=== PATIENT | female | born 2000 | race Caucasian/White ===

== ENCOUNTER → 2019-04-06 | Outpatient (CLI) | payer OTHER ==
[~2019-04-06] MED LIST: CHOL20002 PO; DULO60CA6 PO
--- NOTE | 2019-04-06 18:11 | PAIN ---
DATE OF SERVICE: 04/06/2019 INITIAL CONSULTATION FOR PAIN CLINIC CHIEF COMPLAINT: Overall whole body pain, more specifically low back pain. HISTORY OF PRESENT ILLNESS: The patient is a 18-year-old female who presents with history of pain. She reports for about 8 years when she was 10 began overall body pain from head to toe without any specific injury or action that she is aware of, came up gradually beginning in 2011. The patient reports the pain from head to toe, most significantly across the low back. The patient reports the pain is constant, sharp, stabbing, changes during the day, worse with activity, tingling and numbness in the back itself and in the legs, also pain in the shoulders, upper extremities, elbows, wrists and hands equally right and left as well as the right hip which is more tender than the left, worse with sitting or changing positions, better with walking. The patient has had multiple workups. She reports she is seeing approximately 22 physicians for this problem, has had multiple interventional techniques done as far as lumbar epidural injections, lumbar medial branch blocks, facet joint injections as well as sacroiliac joint injections, all with no significant decrease in pain. The patient is currently taking [id number] naproxen and Tylenol, also has tried nabumetone, Mobic and Tylenol No. 3 is the only thing that has helped the pain. She tried Medrol packs, sulfasalazine, methotrexate and Voltaren gel, all with no decrease in pain. The patient reports the only thing that has helped her pain at all has been Tylenol with Codeine. She gets this for a dog bite that she sustained on her right arm. When she took the Tylenol with Codeine, her other pain throughout the body and the low back were gone. The patient reports she wakes up from sleep at least once or twice a night, does not affect her bowel or bladder control, but does affect her ability to walk, change in positions, etc. The patient reports a disability rating from 0-10, 10 being the worst, is a 3 with family home responsibilities, occupation and self-care, 8 with recreation, 5 with social activity and life support activities. The patient has had an MRI scan report, which is unavailable at time of this dictation, although narrative from previous physician's office says MRI of lumbar spine normal. PAST MEDICAL HISTORY: Significant for enlarged thyroid, although the patient has been in good health thus far she is aware. PAST SURGICAL HISTORY: No previous surgeries. CURRENT MEDICATIONS: Include Cymbalta and vitamin D. ALLERGIES: No known drug allergies. SOCIAL HISTORY: The patient does not drink alcohol, does not smoke, does not use any illegal, illicit or recreational drugs. 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 FAMILY HISTORY: Significant for heart disease, hypercholesterolemia, arthritis and diabetes. REVIEW OF SYSTEMS: The patient's review of systems is positive for those items mentioned in history of present illness. All systems reviewed and otherwise negative. It is complete, full and well documented on the patient's chart. PHYSICAL EXAMINATION: VITAL SIGNS: The patient's blood pressure is 113/75, pulse 85, respirations 18, temperature 98.0 degrees Fahrenheit, height is 5 feet 4 inches, weight is 128 pounds. GENERAL: The patient is awake, alert, oriented, appropriate, very pleasant demeanor. The patient is accompanied by her mother. HEENT: Shows normocephalic, atraumatic. Extraocular movements are intact and symmetrical. The patient has a piercing on the left naris. Oral cavity shows mucous membranes moist and pink. Dentition is intact. NECK: Shows anterior throat supple without palpable lymphadenopathy noted. Swallow reflex symmetrical. CHEST: Shows normal on inspection. Breath sounds are clear to auscultation bilaterally. HEART: Shows S1, S2 clear. No murmurs auscultated. ABDOMEN: Soft, nontender, nondistended. No palpable organomegaly is noted. No rebound or guarding demonstrated. BACK: Shows spine grossly in the midline, normal-appearing cervical lordotic curvature, thoracic kyphotic curvature and slight rightward scoliosis deviation in the lumbar spine, but only very minimal. With palpation, diffuse tenderness throughout the upper, middle and lower distribution of the paraspinous musculature in the cervical distribution. Superior medial and lateral trapezius musculature mildly to moderately tender diffusely as well without specific trigger points or asymmetry. No radiation of pain. This is true into the rhomboid distribution as well as the thoracic paraspinous muscles. Lumbar paraspinous muscles are symmetrical with moderate tenderness in the middle distribution and significant tenderness in the low lumbar distribution, right greater than left. Tenderness over the posterior superior iliac spine as well as over the sacroiliac regions bilaterally with direct palpation, right greater than left as well. The patient has good rotational motion of the cervical spine. Full past 45 degrees closer to 90 degrees, right and left lateral rotation as well as full extension, full forward flexion without difficulty or pain reported. Lumbar spine shows good rotation as well, right and left without significant increase in pain as well as extension and forward flexion without increase in pain as well. EXTREMITIES: The patient's extremities show upper extremity deep tendon reflexes 2+ in the biceps, triceps tendons. Motor exam is strong with body man strength rated at 5/5 as is bicep and tricep flexion. No loss of strength on resistance with shoulder shrug or abduction of shoulder to 90 degrees. Peripheral pulses are 2+ in radial distribution. No peripheral edema is noted bilaterally. Upper extremities are warm and dry to touch, equal in color and appearance. No discoloration, no mottling, no edema. Lower extremities show deep tendon reflexes 2+ in the patellar, 1+ tendo-calcaneus tendons. Motor exam is strong with 5/5 dorsiflexion, extension, quadriceps, hamstring flexion and symmetrical. Peripheral pulses are 1+ posterior tibial. No peripheral edema is noted. No mottling, discoloration. Lower extremities are warm and dry to touch, equal in color and appearance. The patient is able to stand on her toes without significant difficulty or loss of balance, walks with a normal-appearing gait. SKIN: Shows warm and dry, good turgor. No edema. No sores, rashes or bruising throughout. IMPRESSION: 1. This is a 18-year-old female with an 8-year history of generalized body pain as well as low back pain via her chief complaint and right hip pain. 2. Multiple workups without significant diagnostic findings with multiple interventional techniques performed for low back pain and no significant improvements in the past. RECOMMENDATIONS: 1. Neurology recommendation for evaluation with Dr. Nikita Herron office at [facility]. 2. Discussed options with medications. We will try a titration pack of Savella. The patient was given instruction as well as side effects to be aware of as well as her mother who accompanied her to visit today. The patient will follow up after Neurology evaluation and after trial of Savella, which could be started on a regular basis if significantly effective for decreasing pain. CYRUS CASLTE MD DR: ORLANDO/pina JOB#: [id number] / [id number] EDIN Tam DO
== END | disposition home or self-care (01) ==
LOC: PNCL 14:08
PROVIDERS: ATTEND Anesthesiology
DX: M54.5 Low back pain (principal); M25.552 Pain in left hip; E78.00 Pure hypercholesterolemia, unspecified; M19.90 Unspecified osteoarthritis, unspecified site; E11.9 Type 2 diabetes mellitus without complications; E04.9 Nontoxic goiter, unspecified; Z79.899 Other long term (current) drug therapy
CPT/HCPCS: G0463

== ENCOUNTER → 2019-07-13 | Outpatient (CLI) | payer OTHER ==
--- NOTE | 2019-07-13 13:03 | PAIN ---
DATE OF SERVICE: 07/13/2019 PROGRESS NOTE FOR PAIN CLINIC DIAGNOSES: Lumbar radiculopathy with lumbar low back pain and chronic pain syndrome, also myofascial pain. HISTORY OF PRESENT ILLNESS: The patient is a 18-year-old female, who returns for followup, status post initial evaluation, last seen 04/06/2019. The patient with multiple complaints at the time at base of the neck, shoulder, upper extremity, low back, mid back and bilateral lower extremity pain with chronic pain syndrome, status post multiple interventional techniques. Prior to that evaluation, we had recommended Savella titration pack at that time, which she reports did not do much decrease the pain. She is now taking Klonopin, which seems to help the pain moderately. The patient's chief complaint today is low back and bilateral lower extremity pain. The patient reports her "sciatic pain" is increasing, especially with riding in her car on her way to and from work and some at work as well. 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 The patient reports the pain in the low back where it is radiating to the posterior gluteus, posterior thighs, posterior calves, slightly worse on the right than the left, but present bilaterally. The patient reports it is an 8 on a scale of 10 at its worst over the past week, 6 on average, 3 at its least and is a 6 today. The patient reports it is stabbing, radiating, becoming more constant, shooting and burning without significant weakness or fatigability in the lower extremities. The patient has not been stumbling or falling. The patient reports it does not awaken her from sleep at night, much better with lying down or sitting in a more comfortable chair, but again riding the car on her way to work is exacerbating the pain significantly as well as riding home. We talked about possibly finding a lumbar support for the car seat or changing the configuration of the car seat as she drives and she has tried most of these already. PHYSICAL EXAMINATION: VITAL SIGNS: The patient's blood pressure is 108/74, pulse 83, respirations 18, temperature 98.1 degrees Fahrenheit, height is 5 feet 4 inches, weight is 134 pounds. GENERAL: The patient is awake, alert, oriented, appropriate. She has very pleasant demeanor. HEENT: Head shows normocephalic, atraumatic. Extraocular movements are intact and symmetrical. Oral cavity: Mucous membranes moist and pink. NECK: Shows anterior throat supple. CHEST: Shows normal on inspection. Breath sounds are clear bilaterally. HEART: Shows S1, S2 clear. No murmurs auscultated. ABDOMEN: Soft, nontender, nondistended. BACK: Shows spine grossly in the midline. Normal-appearing thoracic kyphosis and lumbar lordotic curvature. Lumbar paraspinous muscle shows symmetrical on inspection. On palpation, she has some moderate tenderness diffusely bilaterally going diffusely throughout the upper, middle and lower distribution of the paraspinous muscles, but without radiation. The patient's spine shows good rotational motion with some moderate tenderness with right and left lateral rotation past 10 degrees, but no significant tenderness with extension and no significant tenderness with forward flexion at 10 degrees and 45 degrees respectively. EXTREMITIES: The patient's lower extremities show deep tendon reflexes 2+ in the patellar and 1+ tendo-calcaneus tendons. Motor exam is strong with 5/5 dorsiflexion, extension, quadriceps and hamstring flexion symmetrical. Peripheral pulses are 1+ posterior tibia. No peripheral edema is noted bilaterally. Lower extremities are warm and dry to touch, equal in color and appearance. The patient is able to stand, stand on her toes, walks with a normal-appearing gait. She does not appear to favor the right or left lower extremity. She is not using any assistive devices to ambulate. PLAN: Options were discussed with the patient. The patient's old chart was reviewed as her current medication regimen updated. Current review of systems updated today as well. We will preauthorize the patient for a lumbar epidural steroid injection. She reports she has done fairly well with these at least for a limited time in the past and would like to try this again as her pain is a radicular in quality by her report and we will make arrangements for preauthorization, have the patient return once this is obtained for lumbar epidural steroid injection at the L5-S1 level. The patient in the meantime will maintain stretching and strength exercises and activity as tolerated. CYRUS CASTLE MD DR: ORLANDO/pina JOB#: [id number] / [id number]
== END | disposition home or self-care (01) ==
LOC: PNCL 08:59
PROVIDERS: ATTEND Anesthesiology
DX: M79.18 Myalgia, other site (principal); M54.16 Radiculopathy, lumbar region; G89.4 Chronic pain syndrome
CPT/HCPCS: G0463

== ENCOUNTER → 2019-07-20 | Outpatient (CLI) | payer OTHER ==
[~2019-07-20] MED LIST changes: +IOHEXOL 180 MG/ML 10 ML VIAL. ONE; +methylPREDNISolone ACETATE 40 MG/ML VIAL. ONE; +methylPREDNISolone ACETATE 80 MG/ML VIAL. ONE
--- NOTE | 2019-07-20 09:56 | PAIN ---
DATE OF SERVICE: 07/20/2019 PROGRESS NOTE FOR PAIN CLINIC DIAGNOSES: 1. Lumbar radiculopathy with lumbar low back pain. 2. Myofascial pain. HISTORY OF PRESENT ILLNESS: The patient is a 18-year-old female, who returns for followup status post initial evaluation and reevaluation with clearance for preauthorization for lumbar epidural steroid injection. The patient reports still pain in the low back, bilateral lower extremities, posterior gluteus, posterior thighs, posterior calves, worse with walking, standing, changing positions and better with sitting or lying down. The patient reports pain is a 7 on a scale of 10 at its worst over the past week, 5 on an average, 3 at its least and is a 6 today. The patient reports it is stabbing and constant in the low back, bilateral lower extremities, radiating in the gluteus and thighs as noted. The patient reports no new motor or sensory deficits, no new bowel or bladder incontinence. PHYSICAL EXAMINATION: VITAL SIGNS: The patient's blood pressure 130/77, pulse 94, respirations 16, temperature 98.7 degrees Fahrenheit, height is 5 feet 4 inches and weight is 134 pounds. GENERAL: The patient is awake, alert, oriented, appropriate, very pleasant demeanor. HEENT: Shows normocephalic, atraumatic. Extraocular movements are intact and symmetrical. Oral cavity: Mucous membranes moist and pink; dentition is intact. NECK: Shows anterior throat supple without palpable lymphadenopathy noted. Swallow reflex symmetrical. CHEST: Shows normal on inspection. Breath sounds clear bilaterally. HEART: Shows S1, S2 clear. No murmurs auscultated. ABDOMEN: Soft, nontender and nondistended. No palpable organomegaly is noted. No rebound or guarding demonstrated. BACK: Shows spine grossly in the midline. Normal-appearing thoracic kyphosis and lumbar lordotic curvature. Lumbar paraspinous muscle shows symmetrical on inspection, on palpation shows some moderate tenderness diffusely bilaterally, only diffusely without significant radiation. The patient shows good rotational motion of the lumbar spine, both laterally as well as extension and flexion, without difficulty. EXTREMITIES: Lower extremities show deep tendon reflexes are 2+/4 in the patellar and tendo-calcaneus tendons. Motor exam is strong with 5/5 dorsiflexion, extension, quadriceps and hamstring flexion and symmetrical. Peripheral pulses are 1+ posterior tibial. No peripheral edema is noted bilaterally. Options were discussed with the patient. The patient's old chart was reviewed as her current medication regimen updated. Current review of systems updated today as well. We will proceed with a lumbar epidural steroid injection today with fluoroscopic guidance. Risks were again discussed including, but not limited to bleeding, infection, possibility of epidural hematoma, subsequent neurological compromise, dural puncture, headaches, spinal cord and/or nerve damage, side effects of steroid medication and poor results regarding pain control. The patient understands and wishes to proceed. The patient will return to clinic in approximately 2 weeks for followup. She was counseled as to return appointment, activity level and side effects to be aware of. DIAGNOSIS: Lumbar radiculopathy with lumbar low back pain. PROCEDURE: Lumbar epidural steroid injection, translaminar approach, L5-S1 level, using C-arm fluoroscopic guidance under sterile prep and drape using local anesthetic. MEDICATIONS INJECTED: A total of 120 mg Depo-Medrol plus 10 mL of preservative-free normal saline and 2 mL of contrast. CONDITION AT DISCHARGE: Stable. The patient tolerated procedure well, had no complications. CYRUS CASTLE MD DR: ORLANDO/pina JOB#: [id number] / [id number]
== END | disposition home or self-care (01) ==
LOC: PNCL 08:54
PROVIDERS: ATTEND Anesthesiology
DX: M54.16 Radiculopathy, lumbar region (principal); M54.5 Low back pain; M79.18 Myalgia, other site; Z98.890 Other specified postprocedural states
CPT/HCPCS: 62323; J1030; J1040; Q9965

== ENCOUNTER → 2019-08-08 | Outpatient (CLI) | payer OTHER ==
[~2019-08-08] MED LIST changes: -IOHEXOL 180 MG/ML 10 ML VIAL. ONE; +ORPH100T PO; -methylPREDNISolone ACETATE 40 MG/ML VIAL. ONE; -methylPREDNISolone ACETATE 80 MG/ML VIAL. ONE
--- NOTE | 2019-08-08 11:05 | PAIN ---
DATE OF SERVICE: 08/08/2019 PROGRESS NOTE FOR PAIN CLINIC DIAGNOSES: Lumbar radiculopathy with low back pain. HISTORY OF PRESENT ILLNESS: The patient is a 18-year-old female, who returns for followup, status post lumbar epidural steroid injection x 1 on 07/20/2019. The patient reports she did very well with about 50% improvement in her low back and bilateral lower extremity pain. The patient reports she was doing quite well until about 3 days ago. She was lifting the front end of a riding mower, felt a popping sensation in her mid-to-low back with immediate pain in the bilateral lower extremities, radiating in the lateral thighs, anterior thighs, medial thighs to the knees bilaterally. The patient reports the pain is still there. While her back is feeling somewhat better from the injection, her legs are now much more exacerbated. The patient reports no loss of motor function, but significant difficulty with walking more than about 10 minutes. The patient rates her pain as a 8 on a scale of 10 at its worst over the past few days, 5 on average, 5 at its least and is a 5 today. The patient reports described it as sharp and stabbing in the back, radiating to the lower extremity, posterior gluteus, lateral thighs, anterior thighs, medial thighs, again right essentially equal to left. The patient reports no loss of motor function, but it has been waking her from sleep about every 5 hours where after the injection initially she is sleeping much better. PHYSICAL EXAMINATION: VITAL SIGNS: The patient's blood pressure 122/82, pulse 68, respirations 18, temperature 98.8 degrees Fahrenheit, height is 5 feet 4 inches and weight is 138 pounds. GENERAL: The patient is awake, alert, oriented, appropriate, very pleasant demeanor. HEENT: Head shows normocephalic, atraumatic. The patient wears eye glasses. Extraocular movements are intact and symmetrical. Oral cavity: Mucous membranes moist and pink. Dentition is intact. NECK: Shows anterior throat supple without palpable lymphadenopathy noted. Swallow reflex symmetrical. CHEST: Shows normal on inspection. Breath sounds clear bilaterally. HEART: Shows S1, S2 clear. ABDOMEN: Soft, nontender, nondistended. BACK: Shows spine grossly in the midline. Normal-appearing thoracic kyphosis and lumbar lordotic curvature slightly flattened. Lumbar paraspinous muscle shows symmetrical on inspection, with palpation is very firm and very tender throughout the upper, middle and lower distribution of the paraspinous muscles bilaterally, right essentially equal to left, but without asymmetry, without trigger points specifically. The patient shows no tenderness over the spinous processes, significant tenderness over the posterior superior iliac spines bilaterally as well, but less so on the sacroiliac joints themselves and no tenderness over the sacrum. The patient has good rotational motion of the lumbar spine, both moderate tenderness right and left as well as extension and forward flexion in all planes and all directions and degrees of flexion and extension, but without radiation to the lower extremities with these maneuvers. EXTREMITIES: The patient's lower extremities show deep tendon reflexes 2+ in the patellar and 1+ tendo-calcaneus tendons. Motor exam is 5/5 with dorsiflexion, extension, quadriceps and hamstring flexion bilaterally and strong and intact, peripheral pulses are 1+ posterior tibia. No peripheral edema. PLAN: 1. Options were discussed with the patient. The patient's old chart was reviewed as her current medication regimen updated. Current review of systems updated today as well. We will obtain preauthorization for MRI scan of the lumbar spine to better differentiate her new pain and radiculopathy after lifting 3 days ago. 2. We will preauthorize the patient for a second lumbar epidural steroid injection as the patient has significant radiculopathy in both lower extremities, again improved after the first injection, but with exacerbation after lifting a lawnmower. The patient will follow up after preauthorization is obtained. We will plan on second lumbar epidural steroid injection and an MRI scan pending. CYRUS CASTLE MD DR: ORLANDO/pina JOB#: [id number] / [id number]
== END | disposition home or self-care (01) ==
LOC: PNCL 09:54
PROVIDERS: ATTEND Anesthesiology
DX: M54.16 Radiculopathy, lumbar region (principal); M40.294 Other kyphosis, thoracic region
CPT/HCPCS: G0463

== ENCOUNTER → 2019-08-15 | Outpatient (CLI) | payer OTHER ==
--- NOTE | 2019-08-15 10:03 | KCIC ---
EXAM: MRI LUMBAR SPINE WITHOUT CONTRAST. HISTORY: Low back pain. Bilateral lower extremity radiculopathy. TECHNIQUE: Magnetic resonance images of the lumbar spine were obtained without contrast. COMPARISON: None. FINDINGS: Alignment is normal. No fractures are identified. There is loss of disc signal at L2-3. Disc heights are preserved. Small Schmorl's nodes scattered throughout the lumbar spine are likely developmental. The conus is at T12-L1 and appears normal. At L2-3, there is a minimal posterior disc bulge. There is no significant stenosis. At L3-4, there is no stenosis. At L4-5, there is no stenosis. At L5-S1, there is a small left paracentral disc protrusion. This narrows the left lateral recess mildly with abutment of the left S1 nerve root. IMPRESSION: 1. A small left paracentral disc protrusion at L5-S1 narrows the left lateral recess mildly with mild mass effect on the left nerve root. 2. Mild degenerative disc disease at L2-3. Electronically signed by: Shanelle Mcgraw MD (08/15/2019 10:00 AM) [id number]
== END ==
LOC: KCIC MRI 09:00
PROVIDERS: ATTEND Anesthesiology
DX: M51.16 Intervertebral disc disorders with radiculopathy, lumbar region (principal); M48.061 Spinal stenosis, lumbar region without neurogenic claudication
CPT/HCPCS: 72148

== ENCOUNTER → 2019-08-22 | Outpatient (CLI) | payer OTHER ==
--- NOTE | 2019-08-22 09:52 | PAIN ---
DATE OF SERVICE: 08/22/2019 PROGRESS NOTE FOR PAIN CLINIC DIAGNOSES: 1. Lumbar radiculopathy with low back pain, lumbar degenerative disk disease. 2. Chronic pain syndrome. 3. Myofascial pain. HISTORY OF PRESENT ILLNESS: The patient is a 18-year-old female who returns for followup status post lumbar epidural steroid injection x 1 with good results, but then the patient had lifted a riding lawnmower and we had rescheduled a new MRI scan of the lumbar spine showing L5-S1 small left paracentral disk protrusion, narrowing of the left lateral recess mildly with abutment of the left S1 nerve root. The patient continues to complain of pain since the lifting incident in the low back and left leg, posterior gluteus, posterior thigh, posterior calf, worse with walking and standing. She reports she has been falling and stumbling because of some weakness and fatigue in the left leg. The patient reports it is a 9 on a scale of 10 at its worst in the past week, 7 on average and 4 at its least and is a 7 today. The patient reports it is aching, stabbing, radiating, becoming more constant with activity, better with sitting or lying down, but awakens her from sleep about 3 times a night. The patient reports she has to reposition, get out of bed and walk to change the pain, which does decrease it, but when she is back to sleep, the same thing happens. The patient reports no new motor or sensory deficits, no new bowel or bladder incontinence, just still significant pain and some easy fatigability and stumbling with the left foot and leg. PHYSICAL EXAMINATION: VITAL SIGNS: The patient's blood pressure 133/88, pulse 105, respirations 18, temperature 99.0 degrees Fahrenheit, height is 5 feet 4 inches, weight is 139 pounds. GENERAL: The patient is awake, alert, oriented, appropriate, very pleasant demeanor. HEENT: Head shows normocephalic, atraumatic. Extraocular movements are intact and symmetrical. Oral cavity: Mucous membranes moist and pink. Dentition is intact. NECK: Shows anterior throat supple without palpable lymphadenopathy noted. Swallow reflex symmetrical. CHEST: Shows normal on inspection. Breath sounds clear to auscultation bilaterally. HEART: Shows S1, S2 clear. No murmurs auscultated. ABDOMEN: Soft, nontender, nondistended. No palpable organomegaly is noted. No rebound or guarding demonstrated. BACK: Shows spine grossly in the midline. Normal appearing thoracic kyphosis and lumbar lordotic curvature. Lumbar paraspinous muscle shows symmetrical on inspection, on palpation shows some moderate tenderness diffusely bilaterally and diffusely without significant radiation. The patient has good rotational motion of lumbar spine, both laterally as well as extension and flexion without significant increase in pain. EXTREMITIES: Lower extremities show deep tendon reflexes at 2+ patellar, 1+ tendo-calcaneus tendons are equal. Motor exam is strong with 5/5 dorsiflexion, extension, quadriceps and hamstring flexion and symmetrical. Peripheral pulses are 1+ posterior tibia. No peripheral edema is noted bilaterally. Options were discussed with the patient. The patient's old chart was reviewed as her current medication regimen updated. Current review of systems updated today as well. She would like to hold on any further interventions at this time, would like to speak to a neurosurgeon regarding her current symptoms and MRI findings. We will make recommendations for referral to a neurosurgeon regarding L5-S1 radiculopathy on the left with current MRI scan findings at this time. Also, try Medrol Dosepak. The patient was given instruction as well as side effects to be aware of with the medication and will follow up after neurosurgical evaluation. CYRUS CASTLE MD DR: [place]/pina JOB#: [id number] / [id number]
== END ==
LOC: PNCL 09:02
PROVIDERS: ATTEND Anesthesiology
DX: M51.16 Intervertebral disc disorders with radiculopathy, lumbar region (principal); M54.5 Low back pain; G89.4 Chronic pain syndrome; M79.18 Myalgia, other site
CPT/HCPCS: G0463